=== PATIENT | male | born 1975 | race Caucasian/White ===

== ENCOUNTER 2024-12-15 07:39 | Emergency (ER) | payer OTHER, SELFPAY ==
[2024-12-15] VITALS (9 sets, daily range): BP systolic 110–147; BP diastolic 64–89; PULSE 66–82; RESP 12–14; TEMP 36.4–36.6; O2SAT 98–100; BMI 27.2
--- NOTE | 2024-12-15 07:56 | DI.CT.S_ITS ---
PROCEDURE: CT FACIAL BONES WO CON INDICATIONS: trauma TECHNIQUE: Noncontrast 2.5 mm thick axial images acquired from the mandible through the frontal sinuses, with coronal and sagittal reformatting. For radiation dose reduction, the following was used: automated exposure control, adjustment of mA and/or kV according to patient size. COMPARISON: None. FINDINGS: Image quality: Excellent. Bones and teeth: Orbital burt are intact. Sinus burt show no fracture or deformity. Nasal bones and septum are intact. Visualized portions of the mandible demonstrate no fractures or subluxation. Zygomatic arches are intact. Pterygoid plates are intact. Visualized portions of the skull base and auditory canals are intact. Sinuses: Paranasal sinuses are aerated, without fluid levels, mucosal thickening, or mucoceles. Mastoid air cells are aerated. Soft tissues: Focus left periorbital facial abrasion/laceration. Vascular: Visualized vascular structures appear normal in the absence of contrast. Bony vascular foramina and canals are intact. IMPRESSION: No visualized fracture. Small focus of left periorbital facial abrasion laceration. Dictated by: Judy Malik M.D. on 12/15/2024 at 8:46 Approved by: Judy Malik M.D. on 12/15/2024 at 8:48
[2024-12-15] MEDS: LIDOCAINE 2% W/EPI INJ 10 ML VIAL INJ (09:00)
--- NOTE | 2024-12-15 09:03 | ED_ITS ---
HPI - Head Injury General Chief complaint: Head Injury Stated complaint: Fall on stairs/head injury Time Seen by Provider: 12/15/24 07:46 Source: patient Mode of arrival: Ambulatory History of Present Illness HPI Narrative: 49-year-old gentleman with no significant medical history was on the [place] this morning stumbled over a step fell forward and hit his face on the edge of the stairs. There is 2 lacerations on his forehead and his glasses caused a large laceration over the bridge of his nose. Bleeding has been controlled. He has not having a headache describes pain is minimal, no cervical spine pain. No other injuries described. Related Data Allergies Allergy/AdvReac Type Severity Reaction Status Date / Time soy Allergy syncope Verified 12/15/24 07:57 Review of Systems Review of Systems Narrative: Pertinent positive and negative findings as per HPI Patient History Social History Smoking Status: Never smoker Smoking Status: Never smoker Exam Initial Vital Signs Initial Vital Signs: Vital Signs Temperature 97.6 F 12/15/24 07:48 Pulse Rate 73 12/15/24 07:48 Respiratory Rate 12 12/15/24 07:48 Blood Pressure 147/81 H 12/15/24 07:48 Pulse Oximetry 100 12/15/24 07:48 Oxygen Delivery Method Room Air 12/15/24 07:48 General: Healthy appearing, in no acute distress. Able to give a complete and coherent history. Well-nourished well-developed HEENT: Moist mucous membranes, normal sclera with reactive pupils, laceration mid forehead, over the left eyelid and over the nasal bone. Extraocular eye movement is intact. Some tenderness around the orbit on the left side. Neck: No midline tenderness Respiratory: Full and symmetrical air movement Cardiac: Regular rate and rhythm no murmurs no bruits Skin: Warm and dry, no rashes Neurologic: Grossly neurologically intact with no obvious asymmetries or abnormalities Extremities: No trauma other than facial injuries, well perfused Psych: Cooperative, appropriate insight and affect Procedures Laceration Repair brow laceration: Time of procedure: 09:47 Site: face Side (If applicable): left Size (cm): 5 Description: irregular Depth: simple, single layer Local Anesthetic: lidocaine 2% and with epi Amount of anesthesia used (mL): 2 Pre-repair: wound explored, irrigated extensively and deep structures intact Skin layer closed with: nylon Skin layer suture size: 4-0 Number of sutures: 5 Technique: simple, interrupted eyelid : Time of procedure: 09:48 Site: face Side (If applicable): left Size (cm): 7 Description: linear (No involvement of deeper structures) Depth: simple, single layer Local Anesthetic: lidocaine 2% and with epi Amount of anesthesia used (mL): 2 Pre-repair: wound explored, irrigated extensively and deep structures intact Skin layer closed with: nylon Skin layer suture size: 5-0 Number of sutures: 6 Technique: simple, interrupted nasal bridge: Time of procedure: 09:50 Site: face Size (cm): 2 Description: flap Depth: simple, single layer Local Anesthetic: lidocaine 2% and with epi Amount of anesthesia used (mL): 1 Pre-repair: wound explored, irrigated extensively and deep structures intact Skin layer closed with: nylon (And Dermabond ) Skin layer suture size: 5-0 Number of sutures: 3 Course Orders Ordered: ED Orders 12/15/24 07:56 CT facial bones wo con Stat Discontinued Medications Lidocaine/Epinephrine (Lidocaine 2% W/Epi Inj 10 Ml Vial) 10 ml INJ NOW ONE Stop: 12/15/24 07:57 Last Admin: 12/15/24 09:00 Dose: 10 ml Documented By: [facility] Vital Signs Vital signs: Vital Signs - 8 hr 12/15/24 07:48 Temperature 97.6 F Pulse Rate 73 Respiratory Rate 12 Blood Pressure 147/81 H Pulse Oximetry 100 Oxygen Delivery Method Room Air MDM - Head Injury Imaging Data ct facial: Radiologist's Impression: PROCEDURE: CT FACIAL BONES WO CON INDICATIONS: trauma TECHNIQUE: Noncontrast 2.5 mm thick axial images acquired from the mandible through the frontal sinuses, with coronal and sagittal reformatting. For radiation dose reduction, the following was used: automated exposure control, adjustment of mA and/or kV according to patient size. COMPARISON: None. FINDINGS: Image quality: Excellent. Bones and teeth: Orbital burt are intact. Sinus burt show no fracture or deformity. Nasal bones and septum are intact. Visualized portions of the mandible demonstrate no fractures or subluxation. Zygomatic arches are intact. Pterygoid plates are intact. Visualized portions of the skull base and auditory canals are intact. Sinuses: Paranasal sinuses are aerated, without fluid levels, mucosal thickening, or mucoceles. Mastoid air cells are aerated. Soft tissues: Focus left periorbital facial abrasion/laceration. Vascular: Visualized vascular structures appear normal in the absence of contrast. Bony vascular foramina and canals are intact. IMPRESSION: No visualized fracture. Small focus of left periorbital facial abrasion laceration. Dictated by: Judy Malik M.D. on 12/15/2024 at 8:46 Approved by: Judy Malik M.D. on 12/15/2024 at 8:48 [facility] [place] Narrative Medical decision making narrative: Otherwise healthy 49-year-old gentleman stumbled and fell landing with his mid face on the edge of stairs going up. He has laceration above the eyebrow, over the eyelid and over the nasal bridge. CT scan of the face does not show any underlying facial fractures. On clinical exam there was no indication of significant cervical spine injury his neck is cleared with nexus criteria and imaging is not felt to be appropriate. All lacerations were repaired, please see procedure notes above. Antibiotic dressing and wound covered applied. Patient does not need antibiotics. Discussed timing of removal stitches and reasons to return to the ER. There was no indication for hospital admission or further workup. He is safe for discharge Discharge Plan Departure Patient Disposition: Home Clinical Impression: Fall Qualifiers: Encounter type: initial encounter Qualified Code(s): W19.XXXA - Unspecified fall, initial encounter Forehead laceration Qualifiers: Encounter type: initial encounter Qualified Code(s): S01.81XA - Laceration without foreign body of other part of head, initial encounter Eyelid laceration, left Qualifiers: Encounter type: initial encounter Qualified Code(s): S01.112A - Laceration without foreign body of left eyelid and periocular area, initial encounter Laceration of nose Qualifiers: Encounter type: initial encounter Qualified Code(s): S01.21XA - Laceration without foreign body of nose, initial encounter Instructions: DI for Laceration Repair Activity Restrictions/Additional Instructions: Thank you for coming in today You did manage a couple of cuts over your face however, there is no underlying broken bones or injury to the eye or the structures around the eye. For the cut on your forehead, this 1 was the thickest but did not involve underl cate muscle. The sutures need to come out on or about December 25 For the cut over the bridge of your nose, this has 2 sutures and skin glue as the skin is so thin. I think you this will give us the best cosmetic result. The skin glue will begin to peel off in about 5 days. It is okay to pull it off, it will not pull the stitches out. Those stitches should come out on or about December 22. For the cut over the eyelid. This was superficial enough that did not not involve the muscles or nerves that effect the eyelid. That area is going to get more swollen and you are going to have a black eye. Ice can definitely help. These stitches need to come out on or about December 22 as well. Do use some antibiotic ointment such as Neosporin over the wounds. You certainly can cover them with bandages, sometimes bandages over your face are difficult to keep on. It is also okay to simply keep antibiotic ointment and leave the wounds open You can get the area wet, please do not use soap or rub. Gently pat dry and then reapply Neosporin dressing There was so much blood flow to the face it is very unusual to get an infection to this area. If you do find that you are having increase pain, any type drainage, smell or increasing redness, you need to be seen and re-evaluated Your tetanus status was updated today If you find that you are getting worse or develop any new symptoms, please feel free to return to the emergency department for further evaluation. Referrals: Eddie Middleton MD [Primary Care Provider] - Stand Alone Forms: Patient Portal/API/Survey
[2024-12-15] MEDS: BACITRACIN OINT 0.9 GM PCKT 5 APPLIC TOP (09:51)
[2024-12-15] MEDS: TET,DIPH,PERTUSS(ACELL),VAC/PF 0.5 ML SYRINGE IM (09:52)
== END 2024-12-15 10:15 | disposition home or self-care (01) ==
PROVIDERS: Emergency Provider Emergency Medicine; PCP Student in an Organized Health Care Education/Training Program
DX: S01.81XA Laceration without foreign body of other part of head, initial encounter (principal); S01.112A Laceration without foreign body of left eyelid and periocular area, initial encounter; S01.21XA Laceration without foreign body of nose, initial encounter; W10.9XXA Fall (on) (from) unspecified stairs and steps, initial encounter; Z23 Encounter for immunization
CPT/HCPCS: 12016; 70486; 90471; 99284; 90715